=== PATIENT | female | born 1985 | race Caucasian/White ===

== ENCOUNTER 2018-07-07 10:07 | Outpatient (CLI) | payer OTHER, SELFPAY ==
[2018-07-07 10:50] LABS: Absolute Basophil Count 0.03 k/cumm (0.0-0.2); Absolute Eosinophil Count 0.03 k/cumm (0.0-0.7); Absolute Lymphocyte Count 0.94 k/cumm (1.2-3.4); Absolute Monocyte Count 0.34 k/cumm (0.11-0.7); Absolute Neutrophil Count 3.79 k/cumm (1.2-6.7); Basophils % 0.6; Eosinophils % 0.6; HCT 37.1 % (36.0-46.0); HGB 12.8 g/dL (12.0-15.5); Lymphocytes % 18.3; Mean Corp. HGB Concentration 34.5 g/dL (32.0-36.0); Mean Corpuscular Hemoglobin 31.4 pg (27.0-33.0); Mean Corpuscular Volume 90.9 fL (80-95); Mean Platelet Volume 9.7 fL (8.0-11.0); Monocytes % 6.6; Neutrophils % 73.9; Platelet Count 236 x1000/uL (130-400); RBC 4.08 m/cumm (4.00-5.20); RBC Distribution Width 12.3 % (11.7-14.6); White Blood Cell Count 5.13 k/cumm (4.4-10.8)
[2018-07-08 10:59] LABS: Hepatitis B Surface Ag Negative (NEGAT)
[2018-07-08 11:01] LABS: HIV-1/2 Ag & Ab Screen Negative (NEGAT)
[2018-07-08 11:22] LABS: Hepatitis C Ab w Rflx HCV PCR Negative (NEGAT)
[2018-07-08 12:09] LABS: Rubella IgG Ab (UVM) Positive; Syphilis Serology (RPR) Negative (Negative)
== END 2018-07-07 10:08 ==
PROVIDERS: Visit Provider Advanced Practice Midwife
DX: Z34.91 Encounter for supervision of normal pregnancy, unspecified, first trimester (principal)
CPT/HCPCS: 36415; 80055; 86850; 86900; 86901

== ENCOUNTER 2018-07-07 10:23 | Outpatient (REF) | payer OTHER, SELFPAY ==
--- NOTE | 2018-07-07 09:30 | PAPFT_PTH ---
PATIENT: Patria Stevenson LOC: [facility] U#:[id number] AGE/SX: 32/F ROOM: RE07/07/[address]: Mary Stewart RN : 1985 BED: DIS: 07/07/2018 SPEC #: [id number] RECD: 07/07/18 12:42 STATUS: DENISSE REJennyfer #: [id number] WILIAN: 07/07/18 09:[address]: Mary Stewart DEPT: [facility] Cytology RECD BY: Alma Gonzalez ENTERED: 07/07/18 12:42 SP TYPE: PAPFT OTHR DR: None Tissues: 1 - CX/ENDOCX FOR PAP SMEARS Procedures: PAP THIN PREP/[facility] Screening HPV DNA PROBE Comments: [id number]
[2018-07-07 12:57] LABS: *AMPHETAMINES SCREEN URINE Negative (Negative); *BARBITURATES SCREEN URINE Negative (Negative); *BENZODIAZEPINES SCREEN URINE Negative (Negative); Cannabinoids THC Negative (Negative); Cocaine Screen,Urine Negative (Negative); METHADONE URINE SCREEN Negative (Negative); OPIATES URINE SCREEN Negative (Negative)
[2018-07-07 13:10] LABS: Tricyclic Antidepressants Negative (Negative)
[2018-07-08 14:53] LABS: Chlamydia Result Negative; GC Result Negative; Specimen Description CERVIX
[2018-07-11 07:24] LABS: Buprenorphine Negative; Norbuprenorphine Negative
== END 2018-07-07 10:24 ==
LOC: LBN 10:23
PROVIDERS: Visit Provider Advanced Practice Midwife
DX: Z34.91 Encounter for supervision of normal pregnancy, unspecified, first trimester (principal); Z11.3 Encounter for screening for infections with a predominantly sexual mode of transmission; Z12.4 Encounter for screening for malignant neoplasm of cervix; Z11.51 Encounter for screening for human papillomavirus (HPV)
CPT/HCPCS: 80307; 87491; 87591; 88142; 87086; 87624

== ENCOUNTER 2018-09-12 00:33 | Outpatient (CLI) | payer OTHER, SELFPAY ==
--- NOTE | 2018-09-12 14:09 | DI.US_ITS ---
Many abnormalities cannot be diagnosed. A normal exam does not exclude a congenital anomaly. Radiology No. LMP: Exam Date: 09/12/18 [facility] wks days on EDC ([facility]) 02/06/19 Confirmed: HISTORY: SURVEY, Z34.90 ---- PREDICTED GESTATIONAL AGE NUMBER 19.0 weeks with a range of 18.0 week to 20.0 weeks. 1 Determined by__[id number]___LMP___HISTORY Info. pertaining to fetus # PLACENTA PRESENTATION Grade I Cephalic___ Anterior__X_Posterior___ Breech____ Right Left Transverse(head right___ Fundal___Low-lying___Previa___ Transverse(head left___ Varying_X BIOMETRY AMNIOTIC FLUID BPD: 46 mm 20.0 weeks Normal HC: 172 mm 19.5 weeks AC: 145 mm 19.6 weeks FL: 31 mm 19.4 weeks AMNIOTIC FLUID INDEX >26 WK CRL: mm weeks Cisterna Magna: 5 mm CI: 84.5 RUQ: LUQ Cerebellum: 1.9 cm EFW: 309 grams Percentile RLQ: LLQ Total: cms Composite AGE= 19.0 wks EDC by US___01/31/19 BIOPHYSICAL PROFILE ANATOMY IDENTIFIED SCORE 0/2 Heart: 4-Chamber__X_Rate:BPM___150__ LVOT: X___ RVOT:____X____ Amniotic Fluid(>2cms)____ Stomach: X_ Kidneys:____X___ Respirations (>30 secs) Bladder: X__ Post. Fossa:____X Body Flex/Extension 3 vessel cord:___X____Ventricles: X cord insertion:__X___ Lips:___X_ Extremity Flex/Extension spinal morphology:__X Nose:X Total Score= Palate:____X___ NS=not seen Routine examination. There is a single living intrauterine gestation. Estimated sonographic age is 19 weeks 0 days. No or placental abnormalities are identified. The amniotic fluid visually is within normal limits. IMPRESSION: Single living intrauterine gestation. Estimated sonographic age is 19 weeks 0 days. Estimated date of delivery is 01/31/19.
== END 2018-09-12 00:53 ==
PROVIDERS: Visit Provider Advanced Practice Midwife
DX: Z34.93 Encounter for supervision of normal pregnancy, unspecified, third trimester (principal)
CPT/HCPCS: 76805

== ENCOUNTER 2018-11-19 09:10 | Outpatient (CLI) | payer OTHER, SELFPAY ==
[2018-11-19 09:44] LABS: HGB 10.3 g/dL (12.0-15.5); Mean Corp. HGB Concentration 33.2 g/dL (32.0-36.0); Mean Corpuscular Hemoglobin 30.8 pg (27.0-33.0); Mean Corpuscular Volume 92.8 fL (80-95); Mean Platelet Volume 9.7 fL (8.0-11.0); Platelet Count 229 x1000/uL (130-400); RBC 3.34 m/cumm (4.00-5.20); RBC Distribution Width 12.1 % (11.7-14.6); White Blood Cell Count 6.01 k/cumm (4.4-10.8)
[2018-11-19 09:51] LABS: Glucose,1 Hr (Glucola) 157 mg/dL (80-140)
== END 2018-11-19 09:30 ==
PROVIDERS: Visit Provider Advanced Practice Midwife
DX: Z34.93 Encounter for supervision of normal pregnancy, unspecified, third trimester (principal); Z01.84 Encounter for antibody response examination
CPT/HCPCS: 82950; 85027; 86850; 90384

== ENCOUNTER 2018-12-01 08:32 | Outpatient (CLI) | payer OTHER, SELFPAY ==
[2018-12-01 10:28] LABS: Glucose 1 Hour 166 mg/dL
[2018-12-01 12:34] LABS: Glucose 3 Hour 103 mg/dL
== END 2018-12-01 08:52 ==
PROVIDERS: Visit Provider Advanced Practice Midwife
DX: Z34.93 Encounter for supervision of normal pregnancy, unspecified, third trimester (principal)
CPT/HCPCS: 36410; 82951

== ENCOUNTER 2019-01-14 11:52 | Outpatient (REF) | payer OTHER, SELFPAY | END 2019-01-14 12:12 | LOC: LBN 11:52 | PROVIDERS: Visit Provider Advanced Practice Midwife | DX: Z34.93 Encounter for supervision of normal pregnancy, unspecified, third trimester (principal); Z36.85 Encounter for antenatal screening for Streptococcus B | CPT/HCPCS: 87081 ==

== ENCOUNTER 2019-02-02 02:55 | Inpatient (IN) | payer OTHER, SELFPAY ==
[2019-02-02] MEDS: Oxytocin 10 UNITS/ML VIAL IM (04:15)
[2019-02-02] MEDS: Ibuprofen 600 MG TAB PO ×3 (04:57→17:59)
[2019-02-02] MEDS: Methylergonovine 0.2 MG/ML VIAL IM (05:06)
[2019-02-02] MEDS: Methylergonovine 0.2 MG TAB PO ×5 (05:06→22:01)
[2019-02-02] MEDS: Lactated Ringers 1,000 ML 1000 ML IV ×2 (06:01→08:30)
[2019-02-02 06:43] LABS: HCT 30.1 % (36.0-46.0); HGB 9.9 g/dL (12.0-15.5); Mean Corp. HGB Concentration 32.9 g/dL (32.0-36.0); Mean Corpuscular Hemoglobin 28.1 pg (27.0-33.0); Mean Corpuscular Volume 85.5 fL (80-95); Mean Platelet Volume 10.9 fL (8.0-11.0); Platelet Count 239 x1000/uL (130-400); RBC 3.52 m/cumm (4.00-5.20); RBC Distribution Width 12.9 % (11.7-14.6); White Blood Cell Count 14.64 k/cumm (4.4-10.8)
[2019-02-02] MEDS: Acetaminophen 325 MG TAB 650 MG PO (11:09)
[2019-02-03] MEDS: Normal Saline Flush 10 ML SYR (02:20)
[2019-02-03] MEDS: Methylergonovine 0.2 MG TAB PO (02:20)
[2019-02-03] MEDS: Ibuprofen 600 MG TAB PO ×2 (03:20→10:12)
[2019-02-03 07:53] LABS: HCT 32.2 % (36.0-46.0); HGB 10.2 g/dL (12.0-15.5); Mean Corp. HGB Concentration 31.7 g/dL (32.0-36.0); Mean Corpuscular Hemoglobin 27.7 pg (27.0-33.0); Mean Corpuscular Volume 87.5 fL (80-95); Mean Platelet Volume 11.3 fL (8.0-11.0); Platelet Count 225 x1000/uL (130-400); RBC 3.68 m/cumm (4.00-5.20); RBC Distribution Width 13.4 % (11.7-14.6); White Blood Cell Count 10.79 k/cumm (4.4-10.8)
[2019-02-03] MEDS: Acetaminophen 325 MG TAB 650 MG PO (10:12)
== END 2019-02-03 13:15 | disposition home or self-care (01) | DRG 806 ==
PROVIDERS: Admitting Provider Advanced Practice Midwife; Visit Provider Advanced Practice Midwife
DX: O62.3 Precipitate labor (principal); O72.2 Delayed and secondary postpartum hemorrhage; Z37.0 Single live birth; O69.81X0 Labor and delivery complicated by cord around neck, without compression, not applicable or unspecified; Z3A.39 39 weeks gestation of pregnancy; O69.2XX0 Labor and delivery complicated by other cord entanglement, with compression, not applicable or unspecified; O26.893 Other specified pregnancy related conditions, third trimester; Z67.11 Type A blood, Rh negative
CPT/HCPCS: 36415; 85027; 85461; 86850; 86900; 86901; 90384; J2210; J2790

== ENCOUNTER 2019-02-04 12:03 | Outpatient (CLI) | payer OTHER, SELFPAY | END 2019-02-04 12:23 | PROVIDERS: Visit Provider Pediatrics | DX: Z39.1 Encounter for care and examination of lactating mother (principal) | CPT/HCPCS: E0602 ==

== ENCOUNTER 2019-03-17 14:47 | Outpatient (REF) | payer OTHER, SELFPAY ==
--- NOTE | 2019-03-17 11:58 | PAPFT_PTH ---
PATIENT: Patria Stevenson LOC: [facility] U#:[id number] AGE/SX: 33/F ROOM: RE03/17/[address]: Mary Stewart RN : 1985 BED: DIS: 03/17/2019 SPEC #: [id number] RECD: 03/17/19 18:04 STATUS: DENISSE REQ #: [id number] WILIAN: 03/17/19 11:[address]: Mary Stewart DEPT: [facility] Cytology RECD BY: Alma Gonzalez ENTERED: 03/17/19 18:04 SP TYPE: PAPFT OT DR: None Tissues: 1 - CX/ENDOCX FOR PAP SMEARS Procedures: PAP THIN PREP/[facility] Screening Comments: [id number] (UNSATISFACTORY FOR EVALUATION)
== END 2019-03-17 15:07 ==
LOC: LBN 14:47
PROVIDERS: Visit Provider Advanced Practice Midwife
DX: Z12.4 Encounter for screening for malignant neoplasm of cervix (principal); Z11.51 Encounter for screening for human papillomavirus (HPV)
CPT/HCPCS: 88142; 87624

== ENCOUNTER 2022-06-27 19:22 | Outpatient (REF) | payer OTHER, SELFPAY ==
[2022-06-29 11:34] LABS: COVID-19 RT-PCR UVMMC Result Negative (Negative)
== END 2022-06-27 19:23 | disposition home or self-care (01) ==
LOC: LBN 19:22
PROVIDERS: Visit Provider Physician Assistant Medical
DX: Z20.822 Contact with and (suspected) exposure to COVID-19 (principal); R05.8 Other specified cough
CPT/HCPCS: U0003